=== PATIENT | male | born 1990 | race Hispanic/Latino ===

== ENCOUNTER 2021-01-17 18:55 | Emergency (ER) | payer BC, OTHER ==
[~2021-01-17] VITALS: Ht 177.8 cm; Wt 87.1 kg
[2021-01-17] MEDS ORDERED: IBUPROFEN 600 MG TAB PO STA (19:47)
[2021-01-17] MEDS ORDERED: PENICILLIN V P500 MG PO (19:53)
[2021-01-17] MEDS ORDERED: IBUPROFEN600 MG PO (19:54)
[2021-01-17 20:05] VITALS: BP 157/100
[2021-01-17] MEDS ORDERED: BACITRACIN ZINC 0.9GM TP ONE (20:06)
[2021-01-18] MEDS ORDERED: BACITRACIN ZINC 15 GM OINT TOP SCH (09:00)
== END 2021-01-17 20:05 | disposition home or self-care (01) ==
LOC: FSED 19:33
DX: S01.511A Laceration without foreign body of lip, initial encounter (principal); S20.219A Contusion of unspecified front wall of thorax, initial encounter; S60.511A Abrasion of right hand, initial encounter; M79.18 Myalgia, other site; V43.52XA Car driver injured in collision with other type car in traffic accident, initial encounter; Y92.488 Other paved roadways as the place of occurrence of the external cause
CPT/HCPCS: 99283